=== PATIENT | male | born 1965 | race Caucasian/White ===

== ENCOUNTER 2018-05-09 06:40 | Day surgery (SDC) | payer MEDICAID ==
[~2018-05-09] VITALS: Ht 185.4 cm; Wt 71.8 kg
[~2018-05-09 06:40] MED LIST: ALBU18HF2 IH; LACT10SO PO; MAGN400C PO; PANT40TA4 PO; PROP60CA6 PO; SPIR25TA5 PO
[2018-05-09 06:52] VITALS: BP 113/68
[2018-05-09] MEDS ORDERED: ALBU18HF2 INH (07:08)
[2018-05-09] MEDS ORDERED: VARE0.5T PO (07:08)
[2018-05-09] MEDS ORDERED: THI100T PO (07:08)
[2018-05-09] MEDS ORDERED: SERT25TA PO (07:08)
[2018-05-09] MEDS ORDERED: DICL100G15 TOP (07:08)
[2018-05-09] MEDS ORDERED: LIPA1CAP18 PO (07:08)
[2018-05-09] MEDS ORDERED: normal saline 1000ml 1,000 ML IV PRN (07:10)
[2018-05-09] MEDS ORDERED: albumin (human) 25% 100 ML IV solution IV PRN (07:10)
[2018-05-09] MEDS ORDERED: OXAZEpam 15mg capsule PO ONE (07:25)
[2018-05-09] MEDS ORDERED: LIDOcaine 1%/PF 5ML 10 MG/ML VIAL SQ ONE (08:30)
== END 2018-05-09 09:00 | disposition home or self-care (01) ==
LOC: SSTAY O 06:40
PROVIDERS: ATTEND Radiology Diagnostic Radiology
DX: K70.31 Alcoholic cirrhosis of liver with ascites (principal); M19.90 Unspecified osteoarthritis, unspecified site; F17.210 Nicotine dependence, cigarettes, uncomplicated; F10.21 Alcohol dependence, in remission; J44.9 Chronic obstructive pulmonary disease, unspecified; Z79.1 Long term (current) use of non-steroidal anti-inflammatories (NSAID); Z96.651 Presence of right artificial knee joint; Z87.09 Personal history of other diseases of the respiratory system; Z86.69 Personal history of other diseases of the nervous system and sense organs; Z88.5 Allergy status to narcotic agent; Z88.6 Allergy status to analgesic agent; Z98.890 Other specified postprocedural states; Z79.899 Other long term (current) drug therapy; Z82.49 Family history of ischemic heart disease and other diseases of the circulatory system
CPT/HCPCS: 76705; A6257; J7030; J2001

== ENCOUNTER 2018-08-16 07:48 | Day surgery (SDC) | payer MEDICAID ==
[2018-08-16] VITALS (8 sets, daily range): BP systolic 124–147; BP diastolic 67–96
[~2018-08-16] VITALS: Ht 185.4 cm; Wt 81.1 kg
[~2018-08-16 07:48] MED LIST changes: +ALBU18HF2 INH; +DICL100G15 TOP; +LIDOcaine 1% 30ml preserv. free vial SQ STA; +LIPA1CAP18 PO; +SERT25TA PO; +THI100T PO; +VARE0.5T PO
[2018-08-16] MEDS ORDERED: albumin (human) 25% 100 ML IV solution IV PRN (08:20)
[2018-08-16] MEDS ORDERED: oxyCODONE IR 5mg (immed. release) tablet PO ONE (08:35)
== END 2018-08-16 10:00 | disposition home or self-care (01) ==
LOC: SSTAY O 07:48
PROVIDERS: ATTEND Radiology Diagnostic Radiology
DX: K70.31 Alcoholic cirrhosis of liver with ascites (principal); M19.90 Unspecified osteoarthritis, unspecified site; J44.9 Chronic obstructive pulmonary disease, unspecified; H91.8X3 Other specified hearing loss, bilateral; F17.210 Nicotine dependence, cigarettes, uncomplicated; F10.10 Alcohol abuse, uncomplicated; Z79.1 Long term (current) use of non-steroidal anti-inflammatories (NSAID); Z96.651 Presence of right artificial knee joint; Z88.6 Allergy status to analgesic agent; Z88.5 Allergy status to narcotic agent; Z86.69 Personal history of other diseases of the nervous system and sense organs; Z98.890 Other specified postprocedural states; Z79.899 Other long term (current) drug therapy; Z82.49 Family history of ischemic heart disease and other diseases of the circulatory system
CPT/HCPCS: 49083; J3490; P9047

== ENCOUNTER 2018-09-10 02:15 | Emergency (ER) | payer MEDICAID ==
[~2018-09-10] VITALS: Ht 185.4 cm; Wt 68.2 kg
[~2018-09-10 02:15] MED LIST changes: -ALBU18HF2 INH; -LIDOcaine 1% 30ml preserv. free vial SQ STA; -PANT40TA4 PO; -PROP60CA6 PO; -SERT25TA PO; -SPIR25TA5 PO; -VARE0.5T PO
[2018-09-10 02:18] VITALS: BP 147/94
--- NOTE | 2018-09-10 02:33 | NUR ---
MD ASSESSED AT BEDSIDE AND INFORMED THE PATIENT OF THE NEED FOR OUTPATIENT TREATMENTS FOR CHRONIC CONDITION.
== END 2018-09-10 02:41 | disposition home or self-care (01) ==
LOC: ER 02:15
DX: K70.31 Alcoholic cirrhosis of liver with ascites (principal); F10.10 Alcohol abuse, uncomplicated; M19.90 Unspecified osteoarthritis, unspecified site; Z98.890 Other specified postprocedural states; Z79.899 Other long term (current) drug therapy; Y90.9 Presence of alcohol in blood, level not specified
CPT/HCPCS: 99283

== ENCOUNTER 2018-09-18 07:52 | Day surgery (SDC) | payer MEDICAID ==
[~2018-09-18] VITALS: Ht 185.4 cm; Wt 82.2 kg
[2018-09-18 07:59] VITALS: BP 123/83
[2018-09-18] MEDS ORDERED: LIDOcaine 1% 30ml preserv. free vial SQ ONE (08:15)
[2018-09-18] MEDS ORDERED: oxyCODONE IR 5mg (immed. release) tablet PO ONE (08:20)
[2018-09-18] MEDS ORDERED: normal saline 1000ml 1,000 ML IV PRN (08:30)
[2018-09-18] MEDS ORDERED: albumin 25% 50mL bottle X 2 BOTTLES IV ONE (08:30)
[2018-09-18 10:15] VITALS: BP 119/69
[2018-09-18 10:30] VITALS: BP 105/64
[2018-09-18 10:45] VITALS: BP 125/47
[2018-09-18 10:55] VITALS: BP 120/65
[2018-09-18] MEDS ORDERED: albumin 25% 50mL bottle X 2 BOTTLES IV PRN (11:00)
[2018-09-18 11:10] VITALS: BP 120/65
== END 2018-09-18 11:10 | disposition home or self-care (01) ==
LOC: SSTAY O 07:52
PROVIDERS: ATTEND Radiology Vascular & Interventional Radiology
DX: K70.31 Alcoholic cirrhosis of liver with ascites (principal); F17.210 Nicotine dependence, cigarettes, uncomplicated; J44.9 Chronic obstructive pulmonary disease, unspecified; M19.90 Unspecified osteoarthritis, unspecified site; H91.8X3 Other specified hearing loss, bilateral; F10.21 Alcohol dependence, in remission; Z96.651 Presence of right artificial knee joint; Z79.1 Long term (current) use of non-steroidal anti-inflammatories (NSAID); Z87.09 Personal history of other diseases of the respiratory system; Z88.5 Allergy status to narcotic agent; Z86.69 Personal history of other diseases of the nervous system and sense organs; Z79.899 Other long term (current) drug therapy; Z98.890 Other specified postprocedural states; Z82.49 Family history of ischemic heart disease and other diseases of the circulatory system
CPT/HCPCS: 49083; J3490; J7030; P9047

== ENCOUNTER 2018-09-25 14:48 | Emergency (ER) | payer MEDICAID ==
[~2018-09-25] VITALS: Ht 185.4 cm; Wt 73.6 kg
[2018-09-25 15:17] VITALS: BP 127/86
[2018-09-25] MEDS ORDERED: TRAM50TA2 PO (15:28)
== END 2018-09-25 15:50 | disposition home or self-care (01) ==
LOC: ER 14:49
DX: S62.92XA Unspecified fracture of left hand, initial encounter for closed fracture (principal); M19.90 Unspecified osteoarthritis, unspecified site; Z98.890 Other specified postprocedural states; Z79.899 Other long term (current) drug therapy; X58.XXXA Exposure to other specified factors, initial encounter; Y93.89 Activity, other specified; Y92.89 Other specified places as the place of occurrence of the external cause; Y99.9 Unspecified external cause status
CPT/HCPCS: 73130; 99283

== ENCOUNTER 2018-10-02 09:40 | Outpatient (CLI) | payer MEDICAID ==
[~2018-10-02] VITALS: Ht 185.4 cm; Wt 79.7 kg
[~2018-10-02 09:40] MED LIST changes: +TRAM50TA2 PO
[2018-10-02 09:50] VITALS: BP 137/74
== END 2018-10-02 11:01 | disposition home or self-care (01) ==
LOC: ORTHO 09:40
PROVIDERS: ATTEND Nurse Practitioner Family
DX: S62.617A Displaced fracture of proximal phalanx of left little finger, initial encounter for closed fracture (principal); S62.397A Other fracture of fifth metacarpal bone, left hand, initial encounter for closed fracture; M85.842 Other specified disorders of bone density and structure, left hand; J44.9 Chronic obstructive pulmonary disease, unspecified; F17.200 Nicotine dependence, unspecified, uncomplicated; Z98.890 Other specified postprocedural states; Z96.651 Presence of right artificial knee joint; X58.XXXA Exposure to other specified factors, initial encounter; Y93.89 Activity, other specified; Y92.89 Other specified places as the place of occurrence of the external cause; Y99.8 Other external cause status
CPT/HCPCS: 73130; G0463

== ENCOUNTER 2018-10-08 10:57 | Outpatient (CLI) | payer MEDICAID ==
[2018-10-08 10:54] VITALS: BP 116/74
== END 2018-10-08 11:53 | disposition home or self-care (01) ==
LOC: ORTHO 10:57
PROVIDERS: ATTEND Nurse Practitioner Family
DX: S62.617D Displaced fracture of proximal phalanx of left little finger, subsequent encounter for fracture with routine healing (principal); M85.842 Other specified disorders of bone density and structure, left hand; J44.9 Chronic obstructive pulmonary disease, unspecified; R56.9 Unspecified convulsions; F17.200 Nicotine dependence, unspecified, uncomplicated; Z98.890 Other specified postprocedural states; Z96.651 Presence of right artificial knee joint; X58.XXXD Exposure to other specified factors, subsequent encounter
CPT/HCPCS: 99211

== ENCOUNTER 2018-11-20 06:37 | Day surgery (SDC) | payer MEDICAID ==
[2018-11-20] VITALS (8 sets, daily range): BP systolic 105–129; BP diastolic 47–77
[~2018-11-20] VITALS: Ht 185.4 cm; Wt 81.9 kg
[~2018-11-20 06:37] MED LIST changes: +LIDOcaine 1% 30ml preserv. free vial SQ STA; -TRAM50TA2 PO
[2018-11-20] MEDS ORDERED: normal saline 1000ml 1,000 ML IV PRN (07:10)
[2018-11-20] MEDS ORDERED: albumin 25% 50mL bottle X 2 BOTTLES IV ONE (07:10)
[2018-11-20] MEDS ORDERED: FURO-150 PO (07:18)
[2018-11-20] MEDS ORDERED: oxyCODONE IR 5mg (immed. release) tablet PO ONE (07:25)
== END 2018-11-20 09:40 | disposition home or self-care (01) ==
LOC: SSTAY O 06:37
PROVIDERS: ATTEND Radiology Diagnostic Radiology
DX: K70.30 Alcoholic cirrhosis of liver without ascites (principal); Z72.89 Other problems related to lifestyle; Z88.6 Allergy status to analgesic agent; Z88.8 Allergy status to other drugs, medicaments and biological substances; Z87.39 Personal history of other diseases of the musculoskeletal system and connective tissue; Z98.890 Other specified postprocedural states
CPT/HCPCS: 49083; J3490; J7030; P9047